=== PATIENT | female | born 1980 ===

== ENCOUNTER 2023-11-28 10:04 | Outpatient (CLI) | payer BC, SELFPAY ==
--- NOTE | ~2023-11-28 | MR_ITS ---
MRI of the right ankle Clinical history: Pain Technique: Coronal proton-density and proton-density fat-sat images, axial proton-density and proton- density fat-sat images, and sagittal proton-density and proton-density fat-sat images were acquired. Findings: Syndesmotic ligaments are intact. Anterior and posterior talofibular ligaments, and calcane ofibular ligament are intact. Deltoid ligament is intact. Medial flexor tendons, peroneal tendons, anterior extensor tendons, and Achilles tendon are intact. No osteochondral lesion of the talar dome. Bone marrow signals and joint spaces are intact. No joint effusion. Plantar fascia intact. Normal signal preserved in the sinus Tarsi. No soft tissue mass or fluid colle ction seen. Impression: Unremarkable exam. Reviewed, dictated and finalized at [facility]. Impression: Unremarkable exam.
--- NOTE | ~2023-11-28 | MR_ITS ---
MRI of the right foot CLINICAL HISTORY: Pain TECHNIQUE: Axial proton-density and proton-density fat-sat images, sagittal T1-weighted and STIR imag es, and coronal T1-weighted and proton-density fat-sat images were acquired. FINDINGS: There is focal mild marrow edema at the medial aspect of the base the distal thigh to the g reat toe. No other bone marrow signal abnormality seen. No fracture or osteoarthritis. Joint spaces a re preserved. No joint effusion. Flexor and extensor tendons are intact. Intrinsic musculature of the foot appears unremarkable. No in termetatarsal bursitis or Bonilla's neuroma. No soft tissue mass or fluid collection seen. Lisfranc li gament is intact. IMPRESSION: Possible focal bone contusion or other reactive marrow edema at the medial aspect of the base of the distal phalanx of the great toe. Reviewed, dictated and finalized at [facility]. IMPRESSION: Possible focal bone contusion or other reactive marrow edema at the medial aspe ct of the base of the distal phalanx of the great toe.
== END 2023-11-28 10:05 ==
LOC: GOSHIMG 10:08
PROVIDERS: PCP Podiatrist Foot & Ankle Surgery; Visit Provider Podiatrist Foot & Ankle Surgery
DX: M25.571 Pain in right ankle and joints of right foot (principal)
CPT/HCPCS: 73718; 73721